=== PATIENT | male | born 1965 | race Caucasian/White ===

== ENCOUNTER 2017-10-05 15:25 | Emergency (ER) | payer OTHER ==
[2017-10-05 15:30] VITALS: BP 150/97; BMI 26.4
--- NOTE | 2017-10-05 18:44 | DR.MBACK ---
HPI - Time Seen Time seen: 18:35 - PCP Primary Care Physician: sherri - Complaint Chief Complaint Doctors Comments: 51 y/o male who presented with a hx. of generalised body aches. He has nasal congestion, some chills, not quite fever. He denies chest pain or SOB. Chief Complaint:: feels bad x 1 week-not eating well-says his girlfriend ran off with all his meds-usually takes lisinopril,oxycodone,ativan and unknown gout med - Reviewed Nurses Notes Review: Yes - Source History Provided: Patient - Mode of Arrival Mode of Arrival: Ambulatory - Timing Onset of Chief Complaint: 09/30/17 PMH - PMH Past Medical History: Yes Past Medical History: Gout, Hypertension Past Medical History Comment: chronic back pain Past Surgical History: No - Family History History of Family Medical Conditions: No - infectious screening In the last 2 months have you had wt loss of >10#?: NO Have you had fever, night sweats or hemotysis?: No Have you traveled outside the country in the last 6 months?: No Isolation: Standard ROS - Review of Systems Constitutional: Chills, Weakness Eyes: No Symptoms Reported ENTM: Nose Congestion Respiratoy: No Symptoms Reported Cardiovascular: No Symptoms Reported Gastrointestinal/Abdominal: No Symptoms Reported Genitourinary: No Symptoms Reported Neurological: No Symptoms Reported Musculoskeletal: Other (achy muscles) Integumentary: No Symptoms Reported Hematologic/Lymphatic: No Symptoms Reported Endocrine: No Symptoms Reported Psychiatric: No Symptoms Reported All Other Systems: Reviewed and Negative PE - Vital Signs Vitals: Temperature 97.8 F Pulse Rate 100 Respiratory Rate 16 Blood Pressure 150/97 O2 Sat by Pulse Oximetry 98 - General Limitations: No Limitations General Appearance: Alert, In No Apparent Distress - Head Head Exam: Normal Inspection - Eyes Eye exam: Normal Appearance - ENT ENT Exam: Normal Exam - Chest Chest Inspection: Normal Inspection - Respiratory Respiratory Exam: Normal Lung Sounds Bilat - Cardiovascular Cardiovascular Exam: Regular Rate, Normal Rhythm - Abdominal Exam Abdominal Exam: Normal Inspection, Normal Bowel Sounds, Soft - Extremities Extremities Exam: Normal Inspection, Full ROM - Back Back Exam: Normal Inspection - Neurological Neurological Exam: Alert, Oriented X3, CN II-XII Intact - Psychiatric Psychiatric Exam: Normal Affect, Normal Mood - Skin Skin Exam: Warm, Dry, Intact, Normal Color Course - Reevaluation 1st: Unchanged - Education/Counseling Education/Counseling: Patient, Family Educated On: Treatment, Diagnosis, Needs for Follow Up ROR - Labs Reviewed Result Diagrams: 10/05/17 18:57 10/05/17 18:57 Laboratory: WBC 8.9 X10^3/uL (3.6-10.0) 10/05/17 18:57 RBC 5.24 X10^6/uL (4.7-6.0) 10/05/17 18:57 Hgb 16.7 g/dL (13.5-18.0) 10/05/17 18:57 Hct 47.7 % (42.0-54.0) 10/05/17 18:57 MCV 91.0 fL (80.0-100.0) 10/05/17 18:57 MCH 31.9 pg (27.0-34.0) 10/05/17 18:57 MCHC 35.0 g/dL (33.0-35.0) 10/05/17 18:57 RDW 13.9 % (11.6-16.5) 10/05/17 18:57 Plt Count 182 X10^3/uL (150.0-450.0) 10/05/17 18:57 MPV 10.0 fL (7.4-11.0) 10/05/17 18:57 Neut % 73.0 % (42.0-75.0) 10/05/17 18:57 Lymph % 17.5 % (21.0-51.0) L 10/05/17 18:57 [place] % 8.9 % (0.0-13.0) 10/05/17 18:57 Eos % 0.1 % (0.9-2.9) L 10/05/17 18:57 Baso % 0.5 % (0.2-1.0) 10/05/17 18:57 Neut # 6.5 x10^3/uL (2.2-4.8) H 10/05/17 18:57 Lymph # 1.5 X10^3/uL (1.3-2.9) 10/05/17 18:57 [place] # 0.8 x10^3/uL (0.3-0.8) 10/05/17 18:57 Eos # 0.0 x10^3/uL (0.0-0.2) 10/05/17 18:57 Baso # 0.0 X10^3/uL (0.0-0.1) 10/05/17 18:57 Absolute Nucleated RBC 0.0 /100WBC 10/05/17 18:57 Sodium 141 mmol/L (136-145) 10/05/17 18:57 Corrected Sodium 141 mmol/L (136-145) 10/05/17 18:57 Potassium 3.7 mmol/L (3.5-5.1) 10/05/17 18:57 Chloride 104 mmol/L (98-107) 10/05/17 18:57 Carbon Dioxide 24.4 mmol/L (21-32) 10/05/17 18:57 BUN 9 mg/dL (7-18) 10/05/17 18:57 Creatinine 0.96 mg/dL (0.70-1.30) 10/05/17 18:57 Est GFR (MDRD) Af Amer > 60 (>60) 10/05/17 18:57 Est GFR (MDRD) Non-Af > 60 (>60) 10/05/17 18:57 Glucose 118 mg/dL (65-99) H 10/05/17 18:57 Calcium 9.3 mg/dL (8.5-10.1) 10/05/17 18:57 Corrected Calcium TNP 10/05/17 18:57 Total Bilirubin 0.60 mg/dL (0.2-1.0) 10/05/17 18:57 AST 92 Units/L (15-37) H 10/05/17 18:57 ALT 140 Units/L (12-78) H 10/05/17 18:57 Alkaline Phosphatase 109 Units/L (46-116) 10/05/17 18:57 Total Protein 8.4 g/dL (6.4-8.2) H 10/05/17 18:57 Albumin 4.3 g/dL (3.4-5.0) 10/05/17 18:57 Globulin 4.1 g/dL (2.5-4.5) 10/05/17 18:57 Albumin/Globulin Ratio 1.0 Ratio (1.1-2.1) L 10/05/17 18:57 Influenza Type A (PCR) Negative (NEGATIVE) 10/05/17 19:02 Influenza Type B (PCR) Negative (NEGATIVE) 10/05/17 19:02 Streptococcus Screen Negative (NEGATIVE) 10/05/17 19:02 - Diagnosis Discharge Problem: Upper respiratory infection - Discharge Plan Disposition: 01 HOME, SELF-CARE Condition: Stable - Follow ups/Referrals Follow ups/Referrals: Sylvester Jacinto [Primary Care Provider] - 3 days - Instructions
[2017-10-05 19:13] LABS: BASOPHILS % (AUTO) 0.5 % (0.2-1.0); EOSINOPHILS % (AUTO) 0.1 % (0.9-2.9); HEMATOCRIT 47.7 % (42.0-54.0); HEMOGLOBIN 16.7 g/dL (13.5-18.0); LYMPHOCYTES # (AUTO) 1.5 X10^3/uL (1.3-2.9); LYMPHOCYTES % (AUTO) 17.5 % (21.0-51.0); MEAN CORPUSCULAR HEMOGLOBIN 31.9 pg (27.0-34.0); MONOCYTES # (AUTO) 0.8 x10^3/uL (0.3-0.8); MONOCYTES % (AUTO) 8.9 % (0.0-13.0); NEUTROPHILS # (AUTO) 6.5 x10^3/uL (2.2-4.8); PLATELET COUNT 182 X10^3/uL (150.0-450.0); RED BLOOD COUNT 5.24 X10^6/uL (4.7-6.0); RED CELL DISTRIBUTION WIDTH 13.9 % (11.6-16.5); WHITE BLOOD COUNT 8.9 X10^3/uL (3.6-10.0)
[2017-10-05 19:22] LABS: ALANINE AMINOTRANSFERASE 140 Units/L (12-78); ALBUMIN 4.3 g/dL (3.4-5.0); ALKALINE PHOSPHATASE 109 Units/L (46-116); ASPARTATE AMINO TRANSFERASE 92 Units/L (15-37); BLOOD UREA NITROGEN 9 mg/dL (7-18); CALCIUM 9.3 mg/dL (8.5-10.1); CARBON DIOXIDE 24.4 mmol/L (21-32); CHLORIDE 104 mmol/L (98-107); COR NA(FOR HYPERGLY) 141 mmol/L (136-145); CREATININE 0.96 mg/dL (0.70-1.30); SODIUM 141 mmol/L (136-145); TOTAL PROTEIN 8.4 g/dL (6.4-8.2); eGFR BLACK RACES > 60 (>60); eGFR NON BLACK RACES > 60 (>60)
== END 2017-10-05 20:35 | disposition home or self-care (01) ==
LOC: ER 15:34
DX: J06.9 Acute upper respiratory infection, unspecified (principal)
CPT/HCPCS: 36415; 80053; 85025; 87070; 87502; 87880; 99282